=== PATIENT | male | born 1985 | race African-American/Black ===

== ENCOUNTER 2022-04-08 08:54 | Emergency (ER) | payer OTHER, SELFPAY ==
[2022-04-08 08:54] VITALS: BP 147/89; PULSE 78; RESP 18; TEMP 36.9; O2SAT 100; BMI 27.1
--- NOTE | 2022-04-08 12:07 | EKG12_ITS ---
Test Reason : CHEST PAIN Blood Pressure : / mmHG Vent. Rate : 067 BPM Atrial Rate : 067 BPM P-R Int : 182 ms QRS Dur : 086 ms QT Int : 366 ms P-R-T Axes : 030 057 039 degrees QTc Int : 386 ms Normal sinus rhythm Normal ECG Confirmed by CHRISTY INFANTE, BABAK ([id number]), editor managing director EMILIANO DESAI ([id number]) on 04/10/2022 6:29:23 AM Referred By: WILLOW Confirmed By:ROQUE HARRISON MD
[2022-04-08 12:15] VITALS: BP 142/99; PULSE 76; RESP 16; O2SAT 98
--- NOTE | 2022-04-08 12:18 | EDS_ITS ---
HPI History of Present Illness Chief Complaint: Chest Pain Detail of Chief Complaint: Intermittent for weeks. Informant: patient Onset/Context/Timing Onset: Weeks Activity at onset: gradual Timing: Intermittent Quality: Positive for Dull (Left-sided warm sensation. No radiation to neck, jaw or arm. No radiation to back.) Location: Left Chest Current Severity: Gone Maximum Severity: Mild Worsened By: Nothing Relieved By: Nothing Associated Symptoms: Negative for Nausea, Vomiting, Diaphoresis, Dyspnea, Cough, Fever, Lightheadedness, Acid Reflux or Palpitations Narrative Narrative: 37-year-old male history of asthma. States that he has had intermittent left- sided chest sensation for the last 2 to 3 weeks. He describes it as a warm sensation. It does not radiate anywhere. It is not associated with exertion and can come at rest. He has never had a DVT or PE. He did recently travel to [facility] drove there but he said he was having the symptoms before that ever occurred. He has no pleuritic chest pain. No leg pain or swelling. No hemoptysis. He does not think it is asthma because he said he really has not been wheezing at all. He has no known cardiac history other than possibly a heart murmur Prior Similar Symptoms: No Recent Illness/Hospitalization: No CVD Risk Factors: Negative for Hypertension, Diabetes, Hypercholesterolemia, Family History 1' </=55 or Smoking PE Risk Factors: Positive for Recent Travel/Surgery; Negative for Recent Immobilization, Prior DVT or PE, Cancer or OCP + Smoking + >/=35 TAD Risk Factors: Negative for Marfan's Syndrome or Hypertension [facility] Medical History Asthma Home Medications albuterol sulfate 90 mcg/actuation aerosol inhaler (ProAir HFA) 1 - 2 puff inhalation Q4H PRN PRN Sob &/Or Wheezing 01/08/16 [History Last Taken 01/08/16] fluticasone 250 mcg-salmeterol 50 mcg/dose blistr powdr for inhalation (Advair Diskus) 1 puff inhalation DAILY 01/08/16 [History Last Taken 01/08/16] prednisone 20 mg tablet 60 mg PO DAILY ##15 01/08/16 [Rx Last Taken Unknown] Allergy/AdvReac Type Severity Reaction Status Date / Time No Known Allergies Allergy Verified 01/08/16 15:37 Social History Smoking Status: Never smoker ROS ROS ED ROS Narrative Atypical chest discomfort. Not exertional. No shortness of breath. Review of Systems ROS Unobtainable: Denies due to encephalopathy Constitutional Constitutional ED: Denies chills or fever(s) Eyes Eyes: Reports none ENT ENT ED: Denies ear pain or rhinorrhea Cardiovascular Cardiovascular: Reports as per HPI and chest pain; Denies palpitations or racing heartbeat Respiratory/Chest Respiratory/Chest: Denies cough, dyspnea or dyspnea on exertion Gastrointestinal Gastrointestinal: Denies abdominal pain, constipation, diarrhea, melena, nausea or vomiting Genitourinary Genitourinary ED: Denies dysuria or hematuria Musculoskeletal Musculoskeletal: Denies arthralgias, back pain or neck pain Integumentary Denies abscess Neurologic Neurologic: Denies headache(s) Psychiatric Psychiatric: Denies anxiety Endocrine Endocrinology: Denies cold intolerance Hematologic/Lymphatic Hematologic/Lymphatic: Denies easy bleeding or easy bruising Allergic/Immunologic Allergic/Immunologic ED: Denies mouth swelling or tongue swelling EXAM Physical Exam Narrative Exam Narrative: Well-appearing 37-year-old male vital signs stable afebrile. Pulse ox 100% on room air no signs hypoxia. H EENT exam unremarkable. Neck nontender no JVD. Lungs clear to auscultation bilaterally. Heart regular rhythm rate about 78 no murmur. Abdomen is soft nontender normal bowel sounds no peritoneal signs. Chest wall nontender. Moving all 4 extremities. Radial pulses equal symmetrical. Calves are nontender no edema. Back nontender. Neurologic exam Const Vital Signs: 04/08/22 08:54 04/08/22 12:15 04/08/22 12:15 Temperature 98.4 F Temperature Source Temporal Pulse Rate 78 76 Respiratory Rate 18 16 Respiratory Effort Normal Respiratory Pattern Normal Blood Pressure 147/89 H 142/99 H Blood Pressure Mean 108 113 Pulse Ox 100 98 Oxygen Delivery Method Room Air Room Air 04/08/22 12:59 04/08/22 14:21 Temperature Temperature Source Pulse Rate 67 Respiratory Rate 12 Respiratory Effort Respiratory Pattern Blood Pressure 139/92 H Blood Pressure Mean 107 Pulse Ox 99 98 Oxygen Delivery Method Room Air Room Air Positive well nourished and well developed; Negative for obese, cachectic, contractures or unkempt General Appearance ED: well developed and NAD; Negative for unkempt, cachectic, contractures or pallor Nutritional Appearance: Negative for cachectic or obese HEENT Reports moist mucous membranes normocephalic and atraumatic; Negative for trauma or tenderness Eyes PERRL and EOMs intact bilaterally General Eye ED: Negative for pale conjunctiva or scleral icterus Neck no lymphadenopathy, supple and no JVD General: Negative for tenderness Chest Wall inspection of chest normal and palpation of chest normal Chest: Negative for tenderness Resp normal respiratory effort and clear to auscultation bilaterally Effort and Inspection: Negative for respiratory distress Auscultation: Negative for rales, rhonchi or wheezes Cardio regular rate, regular rhythm, S1 normal heart sound, S2 normal heart sound and no murmurs Rate: Negative for bradycardia or tachycardic Rhythm: Negative for abnormal rhythm Peripheral Pulses: pulses 2+ throughout GI normal to inspection, nondistended, normoactive bowel sounds, soft to palpation, non-tender, non-distended and no masses Auscultation: Negative for hyperactive bowel sounds Palpation: Negative for splenomegaly Rectal Exam: heme negative stool Back/Spine no CVA tenderness and no thoracic nor lumbar tenderness General Back: Negative for CVA tenderness Cervical Spine: Negative for cervical spine tenderness Extremity normal to inspection General Extremety ED: Negative for edema or pulses abnormal General Extremity: Negative for edema or pulses abnormal Neuro oriented x3 and CN's II-XII intact bilaterally Sensorium / Orientation: awake, alert, oriented to person, oriented to place and oriented to time; Negative for confused, lethargic or stuporous Motor Exam: strength 5/5 throughout Psych mental status grossly normal Appearance: Negative for unkempt Attitude: No agitated Mood & Affect: Negative for depressed, anxious or tearful Skin no rashes or lesions noted and no wounds General Skin Exam: Negative for jaundice or pallor Rashes: No rashes noted Heart Score History: Slightly/Non-Suspicious ECG: Normal Age: </= 45 years Risk Factors: No Risk Factors Troponin: </= Normal Limit Score: 0 MDM MDM MDM Narrative Medical decision making narrative: 37-year-old male with atypical chest sensation of warmth. He describes no pain. He has never had a DVT or PE. He is PERC negative. He has a normal physical exam. Ongoing cardiac work-up. Differential would include cardiac attack is unlikely my suspicion is low. His heart score is 0. He has no history of DVT or PE. No risk factors. His recent travel to [facility] but he was having symptoms before that. I do not think he needs a D-dimer. This is not reproducible. Clinically does not sound like reflux. I do not think it is going to be a pneumothorax. He will undergo cardiac work-up with chest x-ray. Repeat exam at 3:05 PM patient doing well. Symptom-free. Exam unchanged. He had I went over all his test results. He will be discharged to home with outpatient follow-up. Lab Data Attestation: I reviewed the patient's lab results. Lab results narrative: CBC unremarkable. White count of 5. H&H 15 and 44. Platelets 235. Electrolytes unremarkable gap at 3 normal BUN and creatinine. Glucose of 104. Initial troponin 5 and 2-hour troponin 6. Labs: Laboratory Results - last 24 hr 04/08/22 04/08/22 04/08/22 12:20 12:20 14:29 WBC 5.3 RBC 4.97 Hgb 15.4 Hct 44.7 MCV 89.9 MCH 31.0 MCHC 34.5 RDW Std Deviation 42.5 RDW Coeff of Mala 12.9 Plt Count 235 MPV 9.4 Immature Gran % (Auto) 0.200 Neut % (Auto) 53.7 Lymph % (Auto) 38.9 Cowley % (Auto) 5.7 Eos % (Auto) 1.3 Baso % (Auto) 0.2 Absolute Neuts (auto) 2.8 Absolute Lymphs (auto) 2.04 Nucleated RBC % 0 Sodium 139 Potassium 3.7 Chloride 106 Carbon Dioxide 30.0 Anion Gap 3 L BUN 16 Creatinine 1.24 Estim Creat Clear Calc 89.53 Est GFR (MDRD) Af Amer 84 Est GFR (MDRD) Non-Af 70 BUN/Creatinine Ratio 12.9 Glucose 104 Calcium 9.7 Troponin I High Sens 5 6 Radiography Chest X-Ray - ED: 1 View, Read by ED Physician, Read by Radiologist, Heart, Lungs, Mediastinum, Bony Structures and No Acute Disease Diagnostic Testing: Clinical Impression(s) from Imaging Studies Chest X-Ray 04/08/22 12:20 IMPRESSION: Normal x-ray examination of the chest. Electronically Signed: Chepe Andrade MD at 12:46 EST , Chest x-ray, portable, single view interpreted myself and radiologist shows no acute abnormality. Rhythm Strip Rhythm Strip: Sinus Rhythm Rate: 67 Ectopy: None EKG Initial EKG: Attestation: I personally reviewed and interpreted this EKG as follows: Interpretation: Sinus Rhythm and No Acute Injury Pattern Comments: Normal sinus rhythm rate of [address] no ischemia. No dysrhythmia. Prior EKG tracings: not available for review Discharge Plan Triage Chief Complaint: Chest Pain ED Provider: Aaron Alexandre Dx/Rx/DC Orders Clinical Impression: Chest pain, History of asthma Instructions: ED Chest Pain, Uncertain Cause Prescriptions: No Action fluticasone propion-salmeterol [Advair Diskus] 1 PUFF inhaler 1 puff inhalation DAILY albuterol sulfate [ProAir HFA] 1 PUFF inhaler 1 - 2 puff inhalation Q4H PRN PRN (Reason: Sob &/Or Wheezing) prednisone 20 MG tablet 60 mg PO DAILY Qty: 15 0RF Primary Care Provider: Willy Domingo Referrals: Willy Domingo MD [Primary Care Provider] - 1 Week if not improving Activity Restrictions/Additional Instructions: Follow-up with your doctor if not improving. Return if you are feeling worse. All your tests today lab work, x-ray and EKG were all unremarkable. Disposition Disposition: Home, Self Care
--- NOTE | 2022-04-08 12:20 | RAD_ITS ---
STUDY: X-RAY CHEST REASON FOR EXAM: Male, 37 years old. Chest pain TECHNIQUE: Single AP portable view of the chest. COMPARISON: Comparison is made with prior study 01/08/2016. FINDINGS: EKG electrodes are seen. The lungs are clear and expanded. There is no demonstrated pleural abnormality. Normal size heart. Normal mediastinum and grady. Normal visualized pulmonary arteries. Normal visualized aortic arch and descending thoracic aorta. Normal visualized thoracic spine. Normal visualized ribs, clavicles, and shoulders. There is no demonstrated abnormality of the visualized soft tissue structures of the upper abdomen. RAD/Chest 1 View (Portable) IMPRESSION: Normal x-ray examination of the chest. Electronically Signed: Chepe Andrade MD at 12:46 EST ,
[2022-04-08 12:27] LABS: Absolute Lymphocyte Count 2.04 X10^3/uL (0.83-4.51); Absolute Neutrophil Count 2.8 X10^3/uL (2.0-7.7); Basophil# 0.01 X10^3/uL; Basophil% 0.2 % (0-1); Eosinophil# 0.07 X10^3/uL; Eosinophils% 1.3 % (0-5); Hematocrit 44.7 % (40-54); Hemoglobin 15.4 g/dL (13.0-16.5); Lymphocyte # 2.04 X10^3/ul (0.83-4.51); Lymphocyte % 38.9 % (19-41); Mean Corp Hgb Conc 34.5 g/dL (32-36); Mean Corpuscular Volume 89.9 fL (80-94); Mean Platelet Vol. 9.4 fl (6.2-12.0); Monocyte% 5.7 % (0-10); NRBC Flagged by Analyzer 0 % (0-5); Neutrophil # 2.82 X10^3/uL (2.7-7.7); Neutrophil % 53.7 % (47-70); Platelet Count 235 K/mm3 (150-450); RBC Distribution Width CV 12.9 % (11.6-14.6); RBC Distribution Width SD 42.5 fl (35.1-43.9); Red Blood Count 4.97 M/mm3 (4.6-6.2); White Blood Count 5.3 K/mm3 (4.4-11.0)
[2022-04-08 12:44] LABS: Anion Gap 3 (5-15); BUN 16 mg/dL (7-18); BUN/Creat Ratio 12.9 RATIO (10-20); Calcium,Total 9.7 mg/dL (8.5-10.1); Chloride 106 mmol/L (98-107); Creatinine, Serum 1.24 mg/dL (0.70-1.30); EST Glomerular Filtration Rate 70 mL/min (>60); Est Glom Filt Rate - Afr Amer 84 mL/min (>60); Estimated Creatinine Clearance 89.53 ml/min; Glucose 104 mg/dL (74-106); Potassium 3.7 mmol/L (3.5-5.1); Sodium Level 139 mmol/L (136-145); Troponin-I HS (w/2H Reflex) 5 pg/mL (3.0-78.0)
[2022-04-08 12:59] VITALS: O2SAT 99
[2022-04-08 14:21] VITALS: BP 139/92; PULSE 67; RESP 12; O2SAT 98
[2022-04-08 14:23] LABS: Reflex Troponin-HS? (from REC) Y
[2022-04-08 14:58] LABS: Troponin-I HS 6 pg/mL (3.0-78.0)
[2022-04-08 15:19] VITALS: BP 133/88; PULSE 71; RESP 18; O2SAT 98
== END 2022-04-08 15:20 | disposition home or self-care (01) ==
PROVIDERS: Emergency Provider Emergency Medicine; PCP Family Medicine; Visit Provider Emergency Medicine
DX: R07.89 Other chest pain (principal); J45.909 Unspecified asthma, uncomplicated
CPT/HCPCS: 71045; 80048; 84484; 85025; 93005; 99284; A4216